=== PATIENT | female | born 1935 | race Caucasian/White ===

== ENCOUNTER 2022-10-31 16:05 | Emergency (ER) | payer MEDICARE, OTHER ==
[2022-10-31] MEDS ORDERED: SODIUM CHLORIDE 0.9% 1,000 ML IV STA (17:08)
--- NOTE | 2022-10-31 17:14 | ED Physician Documentation ---
History of Present Illness - Stated complaint Stated Complaint: SOA, CHEST PX - Chief complaint Chief Complaint: Resp - History obtained from History obtained from: Patient, Family - History of Present Illness Timing: How many days ago (5) - Additonal information Additional information: Marifer Schmitz is an 87-year-old female Who was previously taken care of by her daughter who is recently . The patient is now being taken care of by her son and [id number]. Her son and [id number]-[id number] have brought her here into the emergency department today with concerns that over the past week as she has been living with them she has developed increasing exertional dyspnea. She has a history of congestive heart failure and an admission to the hospital in [place] earlier this year. On that admission she was [place] [facility] several months for rehab and she is no longer on oxygen. The son and [id number] have found that the patient seems to be tachypneic on exertion and this appears to be worsening over several days. They have also found that she is getting up to go to the bathroom very frequently. Sometimes on the order of several times per hour. They are wondering about the possibility of urinary tract infection. The patient herself thinks that is possible. She does have a deformed left medial malleolus secondary to a fracture which was never repaired. This occurred about 2 years ago. The patient is currently wearing a supportive boot which rubs against that portion of her ankle and has caused some redness to the area. The son has been dressing the area and notes that today this looks somewhat better. Review of Systems Constitutional: denies: Fever Eyes: denies: Decreased vision Ears: denies: Ear pain Nose: denies: Rhinorrhea / runny nose, Congestion Throat: denies: Sore throat Cardiac: reports: Chest pain / pressure. denies: Palpitations, Pedal edema, Calf pain Respiratory: reports: Dyspnea. denies: Cough, Wheezing GI: denies: Abdominal Pain, Nausea, Vomiting, Constipation, Diarrhea : reports: Frequency. denies: Dysuria Skin: reports: Other (redness to the medial malleolus to the left ankle.). denies: Rash Musculoskeletal: reports: Extremity pain. denies: Neck pain, Back pain Neurologic: denies: Generalized weakness, Focal weakness, Numbness PD PAST MEDICAL HISTORY - Allergies Allergies/Adverse Reactions: Allergies Allergy/AdvReac Type Severity Reaction Status Date / Time No Known Drug Allergies Allergy Verified 10/31/22 16:22 PD ED PE NORMAL - Vitals Vital signs reviewed: Yes (normal ) - General General: No acute distress, Well developed/nourished - HEENT HEENT: Atraumatic, PERRL, EOMI, Other (There is a pre-existing right facial droop) - Neck Neck: Supple, no meningeal sign, No bony TTP - Cardiac Cardiac: RRR, Other (2/6 holosystolic murmer at LSB) - Respiratory Respiratory: No respiratory distress, Other (diminished breath sounds bilat at bases) - Abdomen Abdomen: Soft, Non tender - Back Back: No CVA TTP, No spinal TTP - Derm Derm: Normal color, Warm and dry, No rash - Extremities Extremities: Other (deformity to the left medial malleolus overlying skin erythema (improved with wound care per son)) - Neuro Neuro: No motor deficit, No sensory deficit, Normal speech Eye Opening: Spontaneous Motor: Obeys Commands - Psych Psych: Normal mood, Normal affect Results - Vitals Vitals: Vital Signs - 24 hr 10/31/22 16:14 Temperature 37.7 C Heart Rate 62 Respiratory 20 Rate Blood Pressure 139/57 H O2 Saturation 94 Oxygen O2 Source Room air - EKG (time done) 1640 EKG releavant findings:: EKG personally interpreted by author of this note. Relevant findings are: Rate: Rate (enter#) (60) Rhythm: NSR [place]: Normal Intervals: Normal CA, Prolonged QT (borderline) QRS: LVH Ischemia: Normal ST segments Compare to prior EKG: Old EKG unavailable Computer interpretation: Agree with computer - Labs Labs: Laboratory Tests 10/31/22 10/31/22 10/31/22 17:27 17:39 17:39 WBC 7.3 RBC 4.16 L Hgb 11.2 L Hct 36.0 L MCV 86.5 MCH 26.9 L MCHC 31.1 L RDW 18.6 H Plt Count 208 MPV 10.0 Neut # (Auto) 3.1 Lymph # (Auto) 3.0 [place] # (Auto) 0.9 Eos # (Auto) 0.2 Baso # (Auto) 0.1 Absolute Nucleated RBC 0.00 Nucleated RBC % 0.0 Sodium Potassium Chloride Carbon Dioxide Anion Gap BUN Creatinine Estimated GFR (MDRD) Glucose Calcium Total Bilirubin AST ALT Alkaline Phosphatase B-Natriuretic Peptide 357 H Total Protein Albumin Globulin Albumin/Globulin Ratio Lipase Urine Color YELLOW Urine Clarity CLEAR Urine pH 6.0 Ur Specific [place] 1.015 Urine Protein NEGATIVE Urine Glucose (UA) NEGATIVE Urine Ketones NEGATIVE Urine Occult Blood MODERATE H Urine Nitrite NEGATIVE Urine Bilirubin NEGATIVE Urine Urobilinogen 0.2 (NORMAL) Ur Leukocyte Esterase NEGATIVE Urine RBC 6-10 H Urine WBC 0-3 Ur Squamous Epith Cells RARE Squamous Urine Bacteria None Seen Ur Microscopic Review INDICATED Urine Culture Comments NOT INDICATED 10/31/22 18:10 WBC RBC Hgb Hct MCV MCH MCHC RDW Plt Count MPV Neut # (Auto) Lymph # (Auto) [place] # (Auto) Eos # (Auto) Baso # (Auto) Absolute Nucleated RBC Nucleated RBC % Sodium 141 Potassium 3.8 Chloride 108 Carbon Dioxide 29 Anion Gap 4.0 L BUN 19 Creatinine 0.5 L Estimated GFR (MDRD) 116 Glucose 100 Calcium 8.8 Total Bilirubin 0.3 AST 14 ALT 9 L Alkaline Phosphatase 74 B-Natriuretic Peptide Total Protein 6.2 L Albumin 3.6 Globulin 2.6 Albumin/Globulin Ratio 1.4 Lipase 32 Urine Color Urine Clarity Urine pH Ur Specific [place] Urine Protein Urine Glucose (UA) Urine Ketones Urine Occult Blood Urine Nitrite Urine Bilirubin Urine Urobilinogen Ur Leukocyte Esterase Urine RBC Urine WBC Ur Squamous Epith Cells Urine Bacteria Ur Microscopic Review Urine Culture Comments - Rads (name of study) chest Relevant Findings:: Prelim report reviewed (Impression: No acute cardiopulmonary process.), EMP independent interpretation of test Procedures - IVC sono (time) 1700 Bedside IVC sono: IVC measures (cm) (0.83), Significant dehydration (est >2l deficit) PD Medical Decision Making - ED course Complexity details: reviewed results, re-evaluated patient, considered differential, d/w patient, d/w family Reviewed Lab Results: We evaluated a complete blood count showing normal white blood cell count, a depressed hemoglobin and hematocrit at 11.2 and 36.0 we have no prior comparisons for this patient. Her platelets were normal at 208 and her indices were unremarkable. Her electrolytes were normal kidney and liver function normal a BNP was elevated at 357 we have no comparison. Urinalysis showed moderate occult blood 6-10 red blood cells per high-power field 0-3 white blood cells no bacteria. My interpretation of these results: No overwhelming process apparent. ED course: 87-year-old female with recent change in residence is now living with her son and [id number] who are providing excellent care for the patient. She has developed urinary frequency and a concern for urinary tract infection. Our evaluation here today showed a normal urine with some hematuria. Late in the visit the patient complains that she feels that she has to urinate and cannot get urine to come out. With use of POCUS her bladder appears distended. The patient required catheterization for a urine sample early in her visit. She had 500 mL in her bladder. The patient was noted to have significant dehydration and is given intravenous saline as well. Today we are placing a Gamble catheter and we will leave this in place and have the patient follow-up with urology. Departure - Departure Disposition: 01 Home, Self Care Clinical Impression: Dehydration, Acute urinary retention Condition: Stable Instructions: ED Dehydration, ED Retention Urinary Female, ED Catheter Care Gamble Follow-Up: Michael Storm MD [Provider Admit Priv/Credential] - Comments: Marifer, today we did not find evidence of bladder infection. We did find that you have acute urinary retention. For some reason your bladder is not emptying. We have placed a Gamble catheter into your bladder and a follow-up with urology is indicated. Call Dr. Storm's office tomorrow for an appointment in about 1 week. Leave the catheter in place until your visit to Dr. Storm's office. Today we also found that you were a bit dehydrated and our recommendation is to increase the amount of fluids that you are in taking.I have left you the name of several primary care doctors for follow-up. [place] We have requested records from your previous hospitalization and we have not received them at the time of discharge. These records will be helpful in follow up. We did not find any evidence of congestive heart failure today. There is a murmer and this will need follow up as well. Forms: PCP List
[2022-10-31 17:36] LABS: BILIRUBIN,URINE NEGATIVE (NEGATIVE); GLUCOSE, URINE (UA) NEGATIVE (NEGATIVE); KETONES,URINE (UA) NEGATIVE (NEGATIVE); LEUKOCYTE ESTERASE, URINE NEGATIVE (NEGATIVE); NITRITE,URINE NEGATIVE (NEGATIVE); OCCULT BLOOD,URINE MODERATE (NEGATIVE); PROTEIN,URINE NEGATIVE (NEGATIVE); UROBILINOGEN,URINE 0.2 (NORMAL) E.U./dL (NORMAL)
[2022-10-31 17:38] LABS: CLARITY,URINE CLEAR (CLEAR)
[2022-10-31 17:44] LABS: BASOPHILS # (AUTO) 0.1 10^3/uL (0.0-0.1); BASOPHILS % (AUTO) 0.7 %; EOSINOPHILS # (AUTO) 0.2 10^3/uL (0.0-0.7); EOSINOPHILS % (AUTO) 3.3 %; HGB - HEMOGLOBIN 11.2 g/dL (12.0-16.0); LYMPHOCYTES % (AUTO) 40.5 %; MEAN CORPUSCULAR HEMOGLOBIN 26.9 pg (27.0-31.0); MEAN CORPUSCULAR HGB CONC 31.1 g/dL (32.0-36.0); MEAN CORPUSCULAR VOLUME 86.5 fL (81.0-99.0); MONOCYTES # (AUTO) 0.9 10^3/uL (0.0-1.0); MONOCYTES % (AUTO) 12.4 %; NEUTROPHILS # (AUTO) 3.1 10^3/uL (1.5-6.6); PLT - PLATELET COUNT 208 10^3/uL (130-450); RED BLOOD COUNT 4.16 10^6/uL (4.20-5.40); RED CELL DISTRIBUTION WIDTH 18.6 % (12.0-15.0); WHITE BLOOD COUNT 7.3 x10^3/uL (4.8-10.8)
[2022-10-31 17:46] LABS: BACTERIA,URINE None Seen /HPF (None Seen); SQUAMOUS EPITHELIAL CELL,UR RARE Squamous (<= Few); WBC,URINE 0-3 /HPF (0-5)
--- NOTE | 2022-10-31 17:47 | XRAY Report ---
PROCEDURE: Chest 1 View X-Ray INDICATIONS: dyspnea TECHNIQUE: One view of the chest was acquired. COMPARISON: None. FINDINGS: Surgical changes and devices: None. Lungs and pleura: No pleural effusions or pneumothorax. Lungs are clear. Mediastinum: Mediastinal contours appear normal. Heart size is normal. Mildly elevated left hemid iaphragm. Bones and chest wall: No suspicious bony lesions. Overlying soft tissues appear unremarkable. IMPRESSION: No acute cardiopulmonary process. Reviewed by: Lia Avalos MD on 10/31/2022 5:45 PM PDT Approved by: Lia Avalos MD on 10/31/2022 5:45 PM PDT Station ID: [id number]
[2022-10-31 18:28] LABS: ALBUMIN 3.6 g/dL (3.2-5.5); ALBUMIN/GLOBULIN RATIO 1.4 (1.0-2.2); BILIRUBIN,TOTAL 0.3 mg/dL (0.2-1.0); CALCIUM 8.8 mg/dL (8.5-10.3); CREATININE 0.5 mg/dL (0.6-1.3); POTASSIUM 3.8 mmol/L (3.5-4.5); TOTAL PROTEIN 6.2 g/dL (6.4-8.9)
[2022-10-31 20:05] VITALS: BP 184/79
== END 2022-10-31 20:08 | disposition home or self-care (01) ==
LOC: EDBD → ED 16:05
DX: R33.9 Retention of urine, unspecified (principal); E86.0 Dehydration; I50.9 Heart failure, unspecified
CPT/HCPCS: 36415; 51702; 80053; 81001; 81003; 83690; 83880; 85025; 87086; 93005; 99284